=== PATIENT | male | born 1975 | race Caucasian/White ===

== ENCOUNTER 2016-10-31 21:17 | Emergency (ER) | payer OTHER ==
[2016-10-31 21:22] VITALS: BP 146/99; PULSE 75; TEMP 97.7; BMI 25.0
--- NOTE | 2016-10-31 21:22 | PDOC ---
Rapid Medical Evaluation Time Seen by Provider: 10/31/16 21:18 Medical Evaluation: 10/31/16 21:19 41 yo M c/o cough with sob ONLY when he's coughing x3 weeks without fever. Pt initially had a fever x3 weeks ago but subsided after rest/mucinex. Pt took motrin earlier today. Denies cp.
--- NOTE | 2016-10-31 22:48 | PDOC ---
History of Present Illness - General History Source: Patient Exam Limitations: No Limitations - History of Present Illness Initial Comments: 10/31/16 23:10 The patient is a 41 year old male with no significant past medical history who presents to the ED with 3 weeks of worsening dry cough and chills. Patient took mucinex with improvement, but his symptoms worsened. The patient denies fever, diaphoresis, SOB, chest pain, and palpitations. The patient denies abdominal pain, nausea, vomiting, and diarrhea. Allergies: NKDA Social History: No alcohol, tobacco, or drug use reported. Past Surgical History: None reported <Lima Collazo - Last Filed: 10/31/16 23:10> - General History Source: Patient <Joshua Copeland - Last Filed: 10/31/16 23:13> - General Chief Complaint: Respiratory Stated Complaint: COUGH Time Seen by Provider: 10/31/16 21:18 Past History <Lima Collazo - Last Filed: 10/31/16 23:10> - Past Medical History Other medical history: denies - Psycho/Social/Smoking Cessation Hx Suicidal Ideation: No Smoking History: Never smoked Hx Alcohol Use: No Drug/Substance Use Hx: No <Joshua Copeland - Last Filed: 10/31/16 23:13> - Past Medical History Allergies/Adverse Reactions: Allergies Allergy/AdvReac Type Severity Reaction Status Date / Time No Known Allergies Allergy Verified 10/31/16 21:20 Home Medications: Ambulatory Orders Guaifenesin AC [Robitussin AC] 10 ml PO Q6H #120 ml MDD 40 10/31/16 Review of Systems - Review of Systems Able to Perform ROS?: Yes Comments:: 10/31/16 23:10 CONSTITUTIONAL: +chills Absent: fever, no fatigue EYES: Absent: visual changes ENT: Absent: ear pain, no sore throat CARDIOVASCULAR: Absent: chest pain, no palpitations RESPIRATORY: +cough Absent: no SOB GI: Absent: abdominal pain, no nausea, no vomiting, no constipation, no diarrhea GENITOURINARY: Absent: dysuria, no frequency, no hematuria MUSKULOSKELETAL: Absent: back pain, no arthralgia, no myalgia SKIN: Absent: rash NEURO: Absent: headache <Lima Collazo - Last Filed: 10/31/16 23:10> *Physical Exam - Vital Signs Last Vital Signs Temp Pulse Resp BP Pulse Ox 97.7 F 75 18 146/99 99 10/31/16 21:20 10/31/16 21:20 10/31/16 21:20 10/31/16 21:20 10/31/16 21:20 - Physical Exam Comments: 10/31/16 23:10 GENERAL: Well-appearing, well-nourished. No apparent distress. HEENT: Normocephalic, atraumatic. PERRL, EOM intact. CARDIOVASCULAR: Normal S1, S2. Regular rate and rhythm. PULMONARY: Clear to auscultation bilaterally. ABDOMEN: Soft, non-distended, non-tender. EXTREMITIES: Normal ROM in all four extremities. No gross deformities. SKIN: Warm, dry. No rash NEUROLOGICAL: No focal neurological deficits. <Lima Collazo - Last Filed: 10/31/16 23:10> - Vital Signs Last Vital Signs Temp Pulse Resp BP Pulse Ox 97.7 F 75 18 146/99 99 10/31/16 21:20 10/31/16 21:20 10/31/16 21:20 10/31/16 21:20 10/31/16 21:20 <Joshua Copeland - Last Filed: 10/31/16 23:13> Medical Decision Making - Medical Decision Making 10/31/16 23:12 Dr. Copeland: The scribe's documentation has been prepared under my direction and personally reviewed by me in its entirery. I confirm that the note above accurately reflects all work, treatment, procedures, and medical decision making performed by me. chest xray shows no infiltrate. PE is negative. Pt to follow up with his pcp. Rx Robitussin AC <Joshua Copeland - Last Filed: 10/31/16 23:13> *DC/Admit/Observation/Transfer - Attestations Scribe Attestion: 10/31/16 23:10 Documentation prepared by Lima Collazo, acting as director of graduate medical education for Joshua Copeland MD <Lima Collazo - Last Filed: 10/31/16 23:10> - Discharge Dispostion Admit: No <Joshua Copeland - Last Filed: 10/31/16 23:13> Diagnosis at time of Disposition: Cough - Discharge Dispostion Disposition: HOME Condition at time of disposition: Stable - Prescriptions Prescriptions: Guaifenesin AC [Robitussin AC] 10 ml PO Q6H #120 ml MDD 40 - Referrals Referrals: Seven Gloria MD [Staff Physician] - - Patient Instructions Printed Discharge Instructions: DI for Cough -- Adult Print Language: HEBREW
== END 2016-10-31 23:41 | disposition home or self-care (01) ==
LOC: JERFT 21:17 → JER 21:17
DX: R05 Cough (principal)
CPT/HCPCS: 71020-TC; 99282-25